=== PATIENT | female | born 1955 | race Caucasian/White ===

== ENCOUNTER 2018-02-06 09:33 | Emergency (ER) | payer BC ==
[2018-02-06 09:48] VITALS: TEMP 98.6
[2018-02-06] MEDS ORDERED: SODIUM CHLORIDE 0.9% 1,000 ML IV STA (10:17)
[2018-02-06] MEDS ORDERED: ONDANSETRON 4 MG/2 ML VIAL IVP STA (10:17)
--- NOTE | 2018-02-06 10:20 | ED ---
General Adult HPI - General Chief complaint: Abdominal Pain Stated complaint: abd pain Source: patient, RN notes reviewed, old records reviewed Mode of arrival: ambulatory Limitations: no limitations - History of Present Illness Initial comments: 62-year-old female patient with past medical history including irritable bowel syndrome chronic abdominal pain and past surgical history including hysterectomy , cholecystectomy presents to ED with approximately 2 days of right upper quadrant pain, shortness of breath. Pt additionally complains of some suprapubic pain that waxes and wanes. Patient describes the pain as a squeezing sensation in her right upper quadrant. Patient states that she also feels that she has a pressure in her epigastric region, making it difficult to take a deep breath. Patient denies any pleuritic chest pain, chest pain. Patient reports that she has had nausea without emesis. Patient denies any fevers or chills at home. Patient has not taken anything for this problem. Patient has not been previously evaluated for this problem. Patient denies any other symptoms. Systemic: Pt denies fatigue, myalgia, fever/chills, rash. Pt denies weakness, night sweats, weight loss. Neuro: Pt denies headache, visual disturbances, syncope or pre-syncope. HEENT: Pt denies ocular discharge or irritation, otalgia, rhinorrhea, pharyngitis or notable lymphadenopathy. Cardiopulmonary: Pt denies chest pain, heart palpitations, dyspnea on exertion. Abdominal/GI: Pt denies v/d. : Pt denies dysuria, burning w/ urination, frequency/urgency. Denies new onset urinary or bowel incontinence. MSK: Pt denies myalgia, loss of strength or function in extremities. Neuro: Pt denies new onset weakness, paresthesias. - Related Data Home Medications Medication Instructions Recorded Confirmed Estradiol [Vagifem] 10 mcg VG TUFR 02/06/18 02/06/18 Inulin/Chromium Picolinate [Fiber 1 tab PO DAILY 02/06/18 02/06/18 Gummies Chew] L.acidoph,Paracasei, B.lactis 1 cap PO DAILY 02/06/18 02/06/18 [Probiotic] Levothyroxine Sodium [Synthroid] 25 mcg PO SUTUTHSA 02/06/18 02/06/18 Levothyroxine Sodium [Synthroid] 50 mcg PO MOWEFR 02/06/18 02/06/18 Magnesium 200 mg PO DAILY 02/06/18 02/06/18 [place]-3 Fatty Acids/Fish Oil [Fish 1 cap PO DAILY 02/06/18 02/06/18 Oil 1,000 mg Softgel] Polyethylene Glycol 3350 [Miralax] 17 gm PO HS 02/06/18 02/06/18 Previous Rx's Medication Instructions Recorded Ondansetron Odt [Zofran ODT] 4 mg PO Q8HR PRN #20 tab 02/06/18 Pantoprazole Sodium [Protonix] 20 mg PO Q24H #14 tablet. 02/06/18 Allergies Allergy/AdvReac Type Severity Reaction Status Date / Time No Known Allergies Allergy Verified 02/06/18 12:23 Review of Systems ROS Statement: Those systems with pertinent positive or pertinent negative responses have been documented in the HPI. ROS Other: All systems not noted in ROS Statement are negative. Past Medical History Additional Past Medical History / Comment(s): chronic abd pain chronic pelvic pain dysfunction diverticulitis ibs History of Any Multi-Drug Resistant Organisms: None Reported Past Surgical History: Cholecystectomy, Hysterectomy Additional Past Surgical History / Comment(s): l toe joint Past Psychological History: No Psychological Hx Reported Smoking Status: Never smoker Past Alcohol Use History: None Reported Past Drug Use History: None Reported General Exam - General Exam Comments Initial Comments: Constitutional: NAD, AOX3, Pt has pleasant affect. HEENT: NC/AT, trachea midline, neck supple, no lymphadenopathy. Posterior pharynx non erythematous, without exudates. External ears appear normal, without discharge. Mucous membranes moist. Eyes PERRLA, EOM intact. There is no scleral icterus. No pallor noted. Cardiopulmonary: RRR, no murmurs, rubs or gallops, no JVD noted. Lungs CTAB in anterior and posterior meier. No peripheral edema. Abdominal exam: Abdomen soft and non-distended. Abdomen mildly tender to palpation in right upper quadrant. No guarding or rigidity. Perez sign negative. No tenderness at McBurneys point. Bowel sounds active in LLQ. No hepatosplenomegaly. No ecchymosis Neuro: CN II-XII grossly intact. No nuchal rigidity. MSK: No posterior calf tenderness bilaterally, homans sign negative bilaterally. Posterior tibialis and radial pulse +2 bilaterally. Sensation intact in upper and lower extremities. Full active ROM in upper and lower extremities, 5/5 strength. Limitations: no limitations Course Vital Signs 02/06/18 02/06/18 02/06/18 09:45 13:04 15:25 Temperature 98.6 F Pulse Rate 77 74 66 Respiratory 18 18 16 Rate Blood Pressure 119/68 123/70 113/65 O2 Sat by Pulse 99 100 99 Oximetry Medical Decision Making - Medical Decision Making 62-year-old female patient with past medical history including irritable bowel syndrome chronic abdominal pain and past surgical history including hysterectomy , cholecystectomy presents to ED with approximately 2 days of right upper quadrant pain, shortness of breath. Pt additionally complains of some suprapubic pain that waxes and wanes. Patient describes the pain as a squeezing sensation in her right upper quadrant. Patient states that she also feels that she has a pressure in her epigastric region, making it difficult to take a deep breath. Patient denies any pleuritic chest pain, chest pain. Pt VSS, afebrile. Physical exam displayed abnormality 10 to palpation or quadrant. No guarding or rigidity negative Perez sign. No ecchymoses. Cardiopulmonary exam without acute pathology.Laboratory investigations revealed noncompressive CBC, negative d-dimer, mildly increased liver function tests, negative troponin. Amylase lipase within normal limits. Lactic acid within normal limits. UA nonimmpressive. Influenza A and B negative. Imaging modalities Chest x-ray displayed no evidence for acute pulmonary disease. CT abdomen and pelvis displayed mild wall thickening distal stomach which reflect gastritis. EKG not concerning for acute ischemia. Patient diagnosed with gastritis. Patient prescribed Protonix and Zofran. Patient to follow up with PCP tomorrow. Patient to follow-up with [facility] that she follows up with for chronic abdominal pain. Patient to return to ED if new signs or symptoms develop or if condition worsens in any way. Case discussed with Dr. Morgan. - Lab Data Result diagrams: 02/06/18 11:12 02/06/18 11:12 Lab Results 02/06/18 02/06/18 02/06/18 Range/Units 11:12 11:12 11:12 WBC 4.1 (3.8-10.6) k/uL RBC 4.88 (3.80-5.40) m/uL Hgb 14.8 (11.4-16.0) gm/dL Hct 44.9 (34.0-46.0) % MCV 92.1 (80.0-100.0) fL MCH 30.4 (25.0-35.0) pg MCHC 33.0 (31.0-37.0) g/dL RDW 12.3 (11.5-15.5) % Plt Count 294 (150-450) k/uL Neutrophils % 65 % Lymphocytes % 24 % Monocytes % 6 % Eosinophils % 3 % Basophils % 1 % Neutrophils # 2.7 (1.3-7.7) k/uL Lymphocytes # 1.0 (1.0-4.8) k/uL Monocytes # 0.2 (0-1.0) k/uL Eosinophils # 0.1 (0-0.7) k/uL Basophils # 0.0 (0-0.2) k/uL D-Dimer (<0.60) mg/L FEU Sodium 142 (137-145) mmol/L Potassium 4.3 (3.5-5.1) mmol/L Chloride 107 (98-107) mmol/L Carbon Dioxide 28 (22-30) mmol/L Anion Gap 7 mmol/L BUN 9 (7-17) mg/dL Creatinine 0.50 L (0.52-1.04) mg/dL Est GFR (CKD-EPI)AfAm >90 (>60 ml/min/1.73 sqM) Est GFR (CKD-EPI)NonAf >90 (>60 ml/min/1.73 sqM) Glucose 93 (74-99) mg/dL Plasma Lactic Acid Bret (0.7-2.0) mmol/L Calcium 10.0 (8.4-10.2) mg/dL Total Bilirubin 0.6 (0.2-1.3) mg/dL AST 75 H (14-36) U/L ALT 113 H (9-52) U/L Alkaline Phosphatase 74 (38-126) U/L Troponin I <0.012 (0.000-0.034) ng/mL Total Protein 6.9 (6.3-8.2) g/dL Albumin 4.0 (3.5-5.0) g/dL Amylase 64 (30-110) U/L Lipase 110 (23-300) U/L Urine Color Urine Appearance (Clear) Urine pH (5.0-8.0) Ur Specific [place] (1.001-1.035) Urine Protein (Negative) Urine Glucose (UA) (Negative) Urine Ketones (Negative) Urine Blood (Negative) Urine Nitrite (Negative) Urine Bilirubin (Negative) Urine Urobilinogen (<2.0) mg/dL Ur Leukocyte Esterase (Negative) Influenza Type A RNA (Not Detectd) Influenza Type B (PCR) (Not Detectd) 02/06/18 02/06/18 02/06/18 Range/Units 11:12 11:12 12:30 WBC (3.8-10.6) k/uL RBC (3.80-5.40) m/uL Hgb (11.4-16.0) gm/dL Hct (34.0-46.0) % MCV (80.0-100.0) fL MCH (25.0-35.0) pg MCHC (31.0-37.0) g/dL RDW (11.5-15.5) % Plt Count (150-450) k/uL Neutrophils % % Lymphocytes % % Monocytes % % Eosinophils % % Basophils % % Neutrophils # (1.3-7.7) k/uL Lymphocytes # (1.0-4.8) k/uL Monocytes # (0-1.0) k/uL Eosinophils # (0-0.7) k/uL Basophils # (0-0.2) k/uL D-Dimer 0.32 (<0.60) mg/L FEU Sodium (137-145) mmol/L Potassium (3.5-5.1) mmol/L Chloride (98-107) mmol/L Carbon Dioxide (22-30) mmol/L Anion Gap mmol/L BUN (7-17) mg/dL Creatinine (0.52-1.04) mg/dL Est GFR (CKD-EPI)AfAm (>60 ml/min/1.73 sqM) Est GFR (CKD-EPI)NonAf (>60 ml/min/1.73 sqM) Glucose (74-99) mg/dL Plasma Lactic Acid Bret 1.3 (0.7-2.0) mmol/L Calcium (8.4-10.2) mg/dL Total Bilirubin (0.2-1.3) mg/dL AST (14-36) U/L ALT (9-52) U/L Alkaline Phosphatase (38-126) U/L Troponin I (0.000-0.034) ng/mL Total Protein (6.3-8.2) g/dL Albumin (3.5-5.0) g/dL Amylase (30-110) U/L Lipase (23-300) U/L Urine Color Urine Appearance (Clear) Urine pH (5.0-8.0) Ur Specific [place] (1.001-1.035) Urine Protein (Negative) Urine Glucose (UA) (Negative) Urine Ketones (Negative) Urine Blood (Negative) Urine Nitrite (Negative) Urine Bilirubin (Negative) Urine Urobilinogen (<2.0) mg/dL Ur Leukocyte Esterase (Negative) Influenza Type A RNA Not Detected (Not Detectd) Influenza Type B (PCR) Not Detected (Not Detectd) 02/06/18 Range/Units 12:31 WBC (3.8-10.6) k/uL RBC (3.80-5.40) m/uL Hgb (11.4-16.0) gm/dL Hct (34.0-46.0) % MCV (80.0-100.0) fL MCH (25.0-35.0) pg MCHC (31.0-37.0) g/dL RDW (11.5-15.5) % Plt Count (150-450) k/uL Neutrophils % % Lymphocytes % % Monocytes % % Eosinophils % % Basophils % % Neutrophils # (1.3-7.7) k/uL Lymphocytes # (1.0-4.8) k/uL Monocytes # (0-1.0) k/uL Eosinophils # (0-0.7) k/uL Basophils # (0-0.2) k/uL D-Dimer (<0.60) mg/L FEU Sodium (137-145) mmol/L Potassium (3.5-5.1) mmol/L Chloride (98-107) mmol/L Carbon Dioxide (22-30) mmol/L Anion Gap mmol/L BUN (7-17) mg/dL Creatinine (0.52-1.04) mg/dL Est GFR (CKD-EPI)AfAm (>60 ml/min/1.73 sqM) Est GFR (CKD-EPI)NonAf (>60 ml/min/1.73 sqM) Glucose (74-99) mg/dL Plasma Lactic Acid Bret (0.7-2.0) mmol/L Calcium (8.4-10.2) mg/dL Total Bilirubin (0.2-1.3) mg/dL AST (14-36) U/L ALT (9-52) U/L Alkaline Phosphatase (38-126) U/L Troponin I (0.000-0.034) ng/mL Total Protein (6.3-8.2) g/dL Albumin (3.5-5.0) g/dL Amylase (30-110) U/L Lipase (23-300) U/L Urine Color Light Yellow Urine Appearance Clear (Clear) Urine pH 7.5 (5.0-8.0) Ur Specific [place] 1.045 H (1.001-1.035) Urine Protein Negative (Negative) Urine Glucose (UA) Negative (Negative) Urine Ketones 1+ H (Negative) Urine Blood Negative (Negative) Urine Nitrite Negative (Negative) Urine Bilirubin Negative (Negative) Urine Urobilinogen <2.0 (<2.0) mg/dL Ur Leukocyte Esterase Negative (Negative) Influenza Type A RNA (Not Detectd) Influenza Type B (PCR) (Not Detectd) - EKG Data -: EKG Interpreted by Me (and dr morgan) EKG Comments: Ventricular rate 67, VT interval 162, QRS 82, QT/QTc 426 S4 50. Normal sinus rhythm. No concern for acute ischemia. Disposition Clinical Impression: Gastritis Disposition: HOME SELF-CARE Condition: Good Instructions: Gastritis (ED) Additional Instructions: Pt to adhere to previously described tx plan. Pt to f/u with PCP in 1-2 days. Pt to return to ED if s/sx worsen in anyway. Prescriptions: Ondansetron Odt [Zofran ODT] 4 mg PO Q8HR PRN #20 tab PRN Reason: Nausea Pantoprazole Sodium [Protonix] 20 mg PO Q24H #14 tablet.dr Is patient prescribed a controlled substance at d/c from ED?: No Referrals: Scott Nelson DO [Primary Care Provider] - 1-2 days Time of Disposition: 14:18
[2018-02-06 11:36] LABS: Basophils % (A) 1 %; Eosinophils # (A) 0.1 k/uL (0-0.7); Eosinophils % (A) 3 %; HCT 44.9 % (34.0-46.0); HGB 14.8 gm/dL (11.4-16.0); Lymphocytes % (A) 24 %; MCH 30.4 pg (25.0-35.0); MCV 92.1 fL (80.0-100.0); Mean Platelet Volume 6.6; Monocytes # (A) 0.2 k/uL (0-1.0); Monocytes % (A) 6 %; Neutrophils # (A) 2.7 k/uL (1.3-7.7); Neutrophils % (A) 65 %; Platelet Count 294 k/uL (150-450); RBC 4.88 m/uL (3.80-5.40); RDW 12.3 % (11.5-15.5); WBC 4.1 k/uL (3.8-10.6)
[2018-02-06 11:47] LABS: ALT 113 U/L (9-52); AST 75 U/L (14-36); Alkaline Phosphatase 74 U/L (38-126); Amylase 64 U/L (30-110); Anion Gap 7 mmol/L; Blood Urea Nitrogen 9 mg/dL (7-17); Carbon Dioxide 28 mmol/L (22-30); Chloride 107 mmol/L (98-107); Glucose 93 mg/dL (74-99); Lipase 110 U/L (23-300); Potassium 4.3 mmol/L (3.5-5.1); Sodium 142 mmol/L (137-145); Total Bilirubin 0.6 mg/dL (0.2-1.3); Total Protein 6.9 g/dL (6.3-8.2)
--- NOTE | 2018-02-06 12:04 | XR ---
EXAMINATION TYPE: XR chest 2V DATE OF EXAM: 02/06/2018 COMPARISON: NONE HISTORY: Shortness of breath TECHNIQUE: Frontal and lateral views of the chest are obtained. FINDINGS: Scattered senescent parenchymal changes noted. Hyperinflation compatible with COPD. No evidence for infiltrate. No evidence for atelectasis. Heart size is stable. Mediastinal structures are stable and grossly unremarkable. No evidence for hilar prominence. Degenerative changes dorsal spine. IMPRESSION: 1. No evidence for acute pulmonary disease.
--- NOTE | 2018-02-06 12:37 | CT ---
EXAMINATION TYPE: CT abdomen pelvis w con DATE OF EXAM: 02/06/2018 COMPARISON: 11/27/2011 HISTORY: RUQ pain, nausea, constipation. CT DLP: 437.1 mGycm CONTRAST: CT scan of the abdomen and pelvis is performed without Oral Contrast and with IV Contrast, patient in jected with 100 mL of Isovue 300. FINDINGS: LUNG BASES-: No visible nodule. No infiltrate. LIVER/GB: Cholecystectomy clips are in place. No space occupying hepatic lesion. Biliary tree is o f normal caliber. PANCREAS: No inflammation. No distinct mass. SPLEEN: No splenic enlargement. No lesion seen. ADRENALS: No nodule. No thickening. KIDNEYS/BLADDER: No hydronephrosis. No nephrolithiasis. No distinct renal mass. Urinary bladder g rossly unremarkable. BOWEL: Normal appendix. Normal bowel caliber. There is mild wall thickening distal stomach which may reflect gastritis. Correlate clinically. No free air or abscess seen. GENITAL ORGANS: No gross abnormality. LYMPH NODES: No greater than 1cm abdominal or pelvic lymph nodes are appreciated. AORTA: No significant abnormality. OSSEOUS STRUCTURES: No significant abnormality is seen. OTHER: No significant additional abnormality is seen. IMPRESSION: 1. There is mild wall thickening distal stomach which may reflect gastritis. Correlate clinically.
[2018-02-06 12:54] LABS: Appearance,Urine Clear (Clear); Bilirubin,Urine Negative (Negative); Blood,Urine Negative (Negative); Color,Urine Light Yellow; Glucose,Urine (UA) Negative (Negative); Ketones,Urine 1+ (Negative); Leukocyte Esterase,Urine Negative (Negative); Nitrite,Urine Negative (Negative); PH, Urine 7.5 (5.0-8.0); Protein,Urine Negative (Negative); Specific Gravity,Urine 1.045 (1.001-1.035); Urobilinogen,Urine <2.0 mg/dL (<2.0)
[2018-02-06 15:27] VITALS: BP 113/65; PULSE 66; RESP 16
== END 2018-02-06 15:25 | disposition home or self-care (01) ==
LOC: EC 09:33
DX: K29.70 Gastritis, unspecified, without bleeding (principal); R79.89 Other specified abnormal findings of blood chemistry; R06.02 Shortness of breath; K58.9 Irritable bowel syndrome, unspecified; Z87.19 Personal history of other diseases of the digestive system; Z90.49 Acquired absence of other specified parts of digestive tract; Z90.710 Acquired absence of both cervix and uterus; Z79.890 Hormone replacement therapy; Z79.4 Long term (current) use of insulin; Z79.899 Other long term (current) drug therapy
CPT/HCPCS: 36415; 93005; 85379; 80053; 82150; 83605; 83690; 84484; 85025; 81003; 87502; 71046; 74177; 99285; 96374; 96361 ×3; J2405; Q9967

== ENCOUNTER → 2018-03-30 | Outpatient (CLI) | payer BC ==
[2018-03-30 11:26] VITALS: BP 136/60; PULSE 62; RESP 18; TEMP 97; BMI 19.5
--- NOTE | 2018-03-30 12:00 | P.GSHP ---
History of Present Illness H&P Date: 03/30/18 Chief Complaint: abnormal radiographs Tasha is a 62-year-old white female who underwent a bilateral mammogram on . Following the bilateral mammogram she was recommended to undergo a bilateral breast ultrasound. The bilateral breast ultrasound was felt to be most likely benign but a repeat bilateral ultrasound in 6 months was recommended. Hypoechoic lesion without acoustic enhancement and well-defined borders within the left breast was noted was felt that this might represent a fibroadenoma due to stability as compared to prior mammograms. As precautionary measure follow-up study of both breast by ultrasound in 6 months was recommended. No demonstrated mass or unusual fluid collection was noted in the right breast. The patient herself has not noted any masses or nodules in the breast. She has had no nipple discharge or skin changes in the breast. She has no history of any infection or trauma to the breast. The patient drinks one cup of coffee per day, she does not smoke, she is not exposed to secondhand smoke. She does not drink soda or caffeinated tea. She eats minimal chocolate. She does use Vagifem she has been using this for several years. Family History: father: Metastatic melanoma Sister: Breast cancer at 35, not tested for cancer gene, she started with a lumpectomy and radiation therapy, however 5 years later she had a mastectomy, she is alive without evidence of disease at this time, she is 56 paternal grandmother: Esophageal cancer mother: cervical pre-cancer Hormonal History: menarche: 15 : 3, 3 live births, at first child 23, breast fed: no menopause: hysterctomy at 34, not for cancer BCP: none hormones: vagifem two times/week (estridiol) past surgical history: 1. Hysterectomy 2. Right breast biopsy 2 3. Cholecystectomy 4. Enterocele repair Past Medical History: 1. Chronic abdominal pain 2. Pelvic floor dysfunction treated with physical therapy through [facility] [place] Social History: smoke: none alcohol: none drugs: none - Constitutional Constitutional: Reports sweats - EENT Eyes: denies blurred vision, denies pain Ears: deny: decreased hearing, tinnitus Ears, nose, mouth and throat: Denies headache, Denies sore throat - Breasts Breasts: bilateral: as per HPI - Cardiovascular Cardiovascular: Denies chest pain, Denies shortness of breath - Respiratory Respiratory: Denies cough, Denies 7 - Gastrointestinal Comment: lower abdominal pain Gastrointestinal: Reports constipation, Denies abdominal pain, Denies diarrhea, Denies nausea, Denies vomiting - Genitourinary (Female) Comment: pelvic floor disfunction - Menstruation Menstruation: Reports postmenopausal - Musculoskeletal Musculoskeletal: Denies myalgias - Integumentary Integumentary: Denies pruritus, Denies rash - Neurological Neurological: Denies numbness, Denies weakness - Psychiatric Comment: her son in December Psychiatric: Reports anxiety, Reports depression - Endocrine Endocrine: Denies fatigue, Denies weight change - Hematologic/Lymphatic Comment: none - Allergic/Immunologic Comment: none Past Medical History Additional Past Medical History / Comment(s): chronic abd pain chronic pelvic pain dysfunction diverticulitis ibs History of Any Multi-Drug Resistant Organisms: None Reported Past Surgical History: Breast Surgery, Cholecystectomy, Hysterectomy Additional Past Surgical History / Comment(s): LT toe joint; RT BREAST BX Past Psychological History: No Psychological Hx Reported Smoking Status: Never smoker Past Alcohol Use History: None Reported Past Drug Use History: None Reported - Past Family History Father Family Medical History: Diabetes Mellitus, Skin Disorder Mother Family Medical History: Hyperlipidemia, Hypertension Sister(s) Family Medical History: Cancer Additional Family Medical History / Comment(s): BREAST CANCER Medications and Allergies Home Medications Medication Instructions Recorded Confirmed Type Estradiol [Vagifem] 10 mcg VG TUFR 02/06/18 03/30/18 History Inulin/Chromium Picolinate [Fiber 1 tab PO QAM 02/06/18 03/30/18 History Gummies Chew] L.acidoph,Paracasei, B.lactis 1 cap PO QAM 02/06/18 03/30/18 History [Probiotic] Levothyroxine Sodium [Synthroid] 25 mcg PO SUTUTHSA 02/06/18 03/30/18 History Levothyroxine Sodium [Synthroid] 50 mcg PO MOWEFR 02/06/18 03/30/18 History Magnesium 200 mg PO HS 02/06/18 03/30/18 History [place]-3 Fatty Acids/Fish Oil [Fish 1 cap PO QAM 02/06/18 03/30/18 History Oil 1,000 mg Softgel] Polyethylene Glycol 3350 [Miralax] 17 gm PO HS 01/01/19 02/22/19 History Pantoprazole Sodium [Protonix] 30 mg PO QAM 03/30/18 03/30/18 History Allergies Allergy/AdvReac Type Severity Reaction Status Date / Time No Known Allergies Allergy Verified 03/30/18 11:17 Surgical - Exam Vital Signs Temp Pulse Resp BP Pulse Ox 97.0 F L 62 18 136/60 100 03/30/18 11:20 03/30/18 11:20 03/30/18 11:20 03/30/18 11:20 03/30/18 11:20 BMI 19.6 - General well developed, well nourished, no distress - Eyes normal ocular movement - ENT no hearing loss, no congestion - Neck no masses, trachea midline - Respiratory normal respiratory effort, clear to auscultation - Cardiovascular Rhythm: regular Heart Sounds: normal: S1, S2 - Abdomen Abdomen: soft - Integumentary normal turgor - Neurologic no disoriented, no combative - Musculoskeletal normal gait, normal posture - Psychiatric oriented to time, oriented to person, oriented to place, speech is normal, memory intact Breast examination: Right breast: Multi-positional exam no dominant masses or nodules of concern, fibrocystic changes Right axilla: No adenopathy of concern Left breast: Multi-positional exam no dominant masses or nodules of concern, fibrocystic changes Left axilla: No adenopathy of concern Results Patient's mammogram and ultrasound reports reviewed Cadence evaluation reveals five-year risk for 4.1%, lifetime risk 19.6% to develop breast cancer Assessment and Plan Assessment: Impression: 1. Fibrocystic breast changes 2. Radiographic abnormalities of the breast 3. Family history breast cancer 4. Increased risk based on Cadence test model for breast cancer 5. Pelvic floor dysfunction Plan: 1. Repeat bilateral breast ultrasound in 6 months 2. Follow-up in 6 months after ultrasound repeated 3. We have discussed possibility of genetic testing for chemoprevention secondary to the galeal test model results and at this time the patient has chosen not to pursue that Cc: Dr. Montano, Dr. Schmitt
== END | disposition home or self-care (01) ==
LOC: WWCWWP 10:45
PROVIDERS: ATTEND Surgery
DX: Z53.9 Procedure and treatment not carried out, unspecified reason (principal)

== ENCOUNTER → 2018-10-09 | Outpatient (CLI) | payer BC ==
--- NOTE | 2018-10-09 11:11 | USB ---
Reason for exam: clinical finding. History: Patient is postmenopausal. Family history of premenopausal breast cancer in sister at age 35 and breast cancer in maternal cousin at age 30. 2 benign excisional biopsies of the right breast, 1989. Took hormonal contraceptives for 5 years beginning at age 22. Physical Findings: Nurse did not find any significant physical abnormalities on exam. US Breast BILAT Left complete breast ultrasound includes all four quadrants, the retroareolar region and axilla. Finding demonstrates a 0.8 x 0.8 x 0.5cm oval, cystic, complex lesion at 9 o'clock posterior to nipple, prior measured 0.7 x 0.6 x 0.4cm, this is stable mammographically back to 2013. Right complete breast ultrasound includes all four quadrants, the retroareolar region and axilla. Finding demonstrates no cystic or solid lesion seen. These results were verbally communicated with the patient and result sheet given to the patient on 10/09/18. ASSESSMENT: Benign, BI-RAD 2 RECOMMENDATION: Routine screening mammogram of both breasts in 4 months. Back on schedule for February 2019.
== END | disposition home or self-care (01) ==
LOC: RADUSWWP 09:44
PROVIDERS: ATTEND Surgery
DX: R92.8 Other abnormal and inconclusive findings on diagnostic imaging of breast (principal)

== ENCOUNTER → 2018-10-12 | Outpatient (CLI) | payer BC ==
[2018-10-12 13:09] VITALS: BP 127/81; PULSE 58; RESP 18; TEMP 98; BMI 19.9
--- NOTE | 2018-10-12 13:17 | P.PN ---
Subjective Progress Note Date: 10/12/18 tanya is a 62-year-old white female who underwent a bilateral mammogram on . Following the bilateral mammogram she was recommended to undergo a bilateral breast ultrasound. The bilateral breast ultrasound was felt to be most likely benign but a repeat bilateral ultrasound in 6 months was recommen ded. Hypoechoic lesion without acoustic enhancement and well-defined borders within the left breast was noted was felt that this might represent a fibroadenoma due to stability as compared to prior mammograms. As precautionary measure follow-up study of both breast by ultrasound in 6 months was recommended. No demonstrated mass or unusual fluid collection was noted in the right breast. Almita underwent a bilateral repeat breast ultrasound on 9318 this was felt to be benign BIRADS 2. The patient was started have a 0.8 there is a cystic complex lesion at 9:00 posterior to the nipple prior measurement was 0.7 x 0.6 cm. This was felt to be stable mammographically back to 2013. The patient herself has not noted any masses or nodules in the breast. She has had no nipple discharge or skin changes in the breast. She has no history of any infection or trauma to the breast. The patient drinks one cup of coffee per day, she does not smoke, she is not exposed to secondhand smoke. She does not drink soda or caffeinated tea. She eats minimal chocolate. She does use Vagifem she has been using this for several years. Cadence risk evaluation reveals five-year risk of 4.1% Lifetime risk 19.6% We have discussed using an antiestrogen agent and the patient is not interested at this time. She does want to have close surveillance and monitoring secondary to her family history. Family History: father: Metastatic melanoma Sister: Breast cancer at 35, not tested for cancer gene, she started with a lumpectomy and radiation therapy, however 5 years later she had a mastectomy, she is alive without evidence of disease at this time, she is 56 birthday in April paternal grandmother: Esophageal cancer mother: cervical pre-cancer Hormonal History: menarche: 15 : 3, 3 live births, at first child 23, breast fed: no menopause: hysterctomy at 34, not for cancer BCP: none hormones: vagifem two times/week (estridiol), 6 years past surgical history: 1. Hysterectomy 2. Right breast biopsy 2 3. Cholecystectomy 4. Enterocele repair Past Medical History: 1. Chronic abdominal pain 2. Pelvic floor dysfunction treated with physical therapy through [facility] [place] Social History: smoke: none alcohol: none drugs: none - Constitutional Constitutional: Reports sweats - EENT Eyes: denies blurred vision, denies pain Ears: deny: decreased hearing, tinnitus Ears, nose, mouth and throat: Denies headache, Denies sore throat - Breasts Breasts: bilateral: as per HPI - Cardiovascular Cardiovascular: Denies chest pain, Denies shortness of breath - Respiratory Respiratory: Denies cough, Denies 7 - Gastrointestinal Comment: lower abdominal pain Gastrointestinal: Reports constipation, Denies abdominal pain, Denies diarrhea, Denies nausea, Denies vomiting - Genitourinary (Female) Comment: pelvic floor disfunction - Menstruation Menstruation: Reports postmenopausal - Musculoskeletal Musculoskeletal: Denies myalgias - Integumentary Integumentary: Denies pruritus, Denies rash - Neurological Neurological: Denies numbness, Denies weakness - Psychiatric Comment: her son in December Psychiatric: Reports anxiety, Reports depression - Endocrine Endocrine: Denies fatigue, Denies weight change - Hematologic/Lymphatic Comment: none - Allergic/Immunologic Comment: none Past Medical History Additional Past Medical History / Comment(s): chronic abd pain chronic pelvic pain dysfunction diverticulitis ibs History of Any Multi-Drug Resistant Organisms: None Reported Past Surgical History: Breast Surgery, Cholecystectomy, Hysterectomy Additional Past Surgical History / Comment(s): LT toe joint; RT BREAST BX Past Psychological History: No Psychological Hx Reported Smoking Status: Never smoker Past Alcohol Use History: None Reported Past Drug Use History: None Reported Objective - Exam BMI 19.1 - Constitutional General appearance: Present: average body habitus - EENT Eyes: Present: EOMI ENT: Present: hearing grossly normal - Neck Neck: Present: normal ROM - Respiratory Respiratory: bilateral: CTA - Cardiovascular Rhythm: regular Heart sounds: normal: S1, S2 - Gastrointestinal General gastrointestinal: Present: soft - Integumentary Integumentary: Present: normal turgor - Musculoskeletal Musculoskeletal: Present: gait normal - Psychiatric Psychiatric: Present: A&O x's 3, appropriate affect, intact judgment & insight - Additional findings Additional findings: Breast exam: Right breast: Multi-positional exam fibrocystic changes no dominant masses or nodules of concern Right axilla: No adenopathy of concern Left breast: Multi-positional exam no dominant masses or nodules of concern Left axilla: No adenopathy of concern Assessment and Plan Assessment: Impression: 1. Fibrocystic breast changes 2. Radiographic abnormality left breast 3. Family history of breast cancer 4. Increased risk based on Cadence model test for breast cancer 5. Pelvic floor dysfunction Plan: 1. Bilateral mammogram in 4 months with a physician exam at that time 2. Patient to call immediately if she notes anything of concern 3. Medical management of medical conditions CC:Dr. Montano, Dr. Schmitt
== END | disposition home or self-care (01) ==
LOC: WWCWWP 12:38
PROVIDERS: ATTEND Surgery
DX: Z53.9 Procedure and treatment not carried out, unspecified reason (principal)

== ENCOUNTER → 2019-02-11 | Outpatient (CLI) | payer BC ==
--- NOTE | 2019-02-12 09:25 | MM ---
Reason for exam: screening (asymptomatic). Last mammogram was performed 4 years ago. History: Patient is postmenopausal. Family history of premenopausal breast cancer in sister at age 35 and breast cancer in maternal cousin at age 30. 2 benign excisional biopsies of the right breast, 1989. Took hormonal contraceptives for 5 years beginning at age 22. Took estrogen for 5 years. Took progesterone for 5 years. Physical Findings: A clinical breast exam by your physician is recommended on an annual basis and results should be correlated with mammographic findings. MG Screening Mammo w CAD Bilateral CC, MLO, and XCCL view(s) were taken. Prior study comparison: February 04, 2015, bilateral MG screening mammo w CAD. January 21, 2014, bilateral MG screening mammo w CAD. The breast tissue is heterogeneously dense. This may lower the sensitivity of mammography. There is a stable left lower inner quadrant mass back to 2014. No suspicious abnormality. No significant changes when compared with prior studies. ASSESSMENT: Benign, BI-RAD 2 RECOMMENDATION: Routine screening mammogram of both breasts in 1 year.
== END | disposition home or self-care (01) ==
LOC: RADMAMWWP 09:51
PROVIDERS: ATTEND Surgery
DX: Z12.31 Encounter for screening mammogram for malignant neoplasm of breast (principal)
CPT/HCPCS: 77067

== ENCOUNTER → 2019-02-15 | Outpatient (CLI) | payer BC ==
[2019-02-15 12:53] VITALS: BP 130/86; PULSE 80; RESP 16; TEMP 97.6
--- NOTE | 2019-02-15 13:13 | P.PN ---
Subjective Progress Note Date: 02/15/19 Principal diagnosis: fibrocystic breast changes The patient has been being followed for radiographic abnormality noted to in February 2018. Her most recent mammogram now is February 11, 2019. This was benign BIRADS 2. The patient at this time does not feel any lumps masses or n odules for which she is concerned in her breasts. She has no complaints of any breast pain. No nipple discharge or skin changes. She has increased her caffeine intake to approximately 2 cups per day. She does not smoke and is not exposed to secondhand smoke. She eats chocolate occasionally. She uses Vagifem. She has been using it for approximately 5 years. Family History: father: Metastatic melanoma Sister: Breast cancer at 35, not tested for cancer gene, she started with a lumpectomy and radiation therapy, however 5 years later she had a mastectomy, she is alive without evidence of disease at this time, she is 56 birthday in April paternal grandmother: Esophageal cancer mother: cervical pre-cancer Hormonal History: menarche: 15 : 3, 3 live births, at first child 23, breast fed: no menopause: hysterctomy at 34, not for cancer BCP: none hormones: vagifem two times/week (estridiol), 6 years past surgical history: 1. Hysterectomy 2. Right breast biopsy 2 3. Cholecystectomy 4. Enterocele repair Past Medical History: 1. Chronic abdominal pain 2. Pelvic floor dysfunction treated with physical therapy through [facility] [place] Social History: smoke: none alcohol: none drugs: none - Constitutional Constitutional: Reports sweats - EENT Eyes: denies blurred vision, denies pain Ears: deny: decreased hearing, tinnitus Ears, nose, mouth and throat: Denies headache, Denies sore throat - Breasts Breasts: bilateral: as per HPI - Cardiovascular Cardiovascular: Denies chest pain, Denies shortness of breath - Respiratory Respiratory: Denies cough, - Gastrointestinal Comment: lower abdominal pain Gastrointestinal: Reports constipation, Denies abdominal pain, Denies diarrhea, Denies nausea, Denies vomiting - Genitourinary (Female) Comment: pelvic floor disfunction - Menstruation Menstruation: Reports postmenopausal - Musculoskeletal Musculoskeletal: Denies myalgias - Integumentary Integumentary: Denies pruritus, Denies rash - Neurological Neurological: Denies numbness, Denies weakness - Psychiatric Comment: her son in December Psychiatric: Reports anxiety, Reports depression - Endocrine Endocrine: Denies fatigue, Denies weight change - Hematologic/Lymphatic Comment: none - Allergic/Immunologic Comment: none Past Medical History Additional Past Medical History / Comment(s): chronic abd pain chronic pelvic pain dysfunction diverticulitis ibs History of Any Multi-Drug Resistant Organisms: None Reported Past Surgical History: Breast Surgery, Cholecystectomy, Hysterectomy Additional Past Surgical History / Comment(s): LT toe joint; RT BREAST BX Past Psychological History: No Psychological Hx Reported Smoking Status: Never smoker Past Alcohol Use History: None Reported Past Drug Use History: None Reported Objective - Vital Signs Vital signs: Vital Signs Temp 97.6 F 02/15/19 12:47 Pulse 80 02/15/19 12:47 Resp 16 02/15/19 12:47 BP 130/86 02/15/19 12:47 Pulse Ox 99 02/15/19 12:47 Intake & Output 02/14/19 02/15/19 02/15/19 18:59 06:59 18:59 Weight 48.988 kg - Exam BMI 19.1 - Constitutional General appearance: Present: average body habitus - EENT Eyes: Present: EOMI ENT: Present: hearing grossly normal - Neck Details: no adenopathy Neck: Present: normal ROM - Respiratory Respiratory: bilateral: CTA - Cardiovascular Rhythm: regular Heart sounds: normal: S1, S2 - Gastrointestinal General gastrointestinal: Present: normal bowel sounds, soft - Integumentary Integumentary: Present: normal turgor - Musculoskeletal Musculoskeletal: Present: gait normal - Psychiatric Psychiatric: Present: A&O x's 3, appropriate affect, intact judgment & insight - Additional findings Additional findings: breast exam: bra 34C inspection: no skin lesions of concern, nipple not inverted right breast: Slightly larger than left breast, fibrocystic changes, no dominant masses or nodules of concern on multiple positional exam Right axilla: No adenopathy of concern Left breast: Multi-positional exam fibrocystic changes no dominant masses or nodules of concern Left axilla: No adenopathy of concern Assessment and Plan Assessment: Impression: 1. Fibrocystic breast changes 2. Family history of breast cancer 3. Bilateral mammogram BIRADS 2 4. Nothing which would warrant interventional biopsy at this time Plan: 1. We have again discussed the caffeine may increase fibrocystic breast changes patient is aware that this time is going to just follow closely 2. Repeat bilateral mammogram in 1 year with physician exam at that time 3. We have discussed genetic testing for patient's sister who developed breast cancer at 35 port she has opted not to do this Cc: Dr.Mark Nelson Encounter 15 minutes > 50% of time in planning and counselling Time with Patient: Less than 30
== END | disposition home or self-care (01) ==
LOC: WWCWWP 12:43
PROVIDERS: ATTEND Surgery
DX: Z53.9 Procedure and treatment not carried out, unspecified reason (principal)

== ENCOUNTER → 2020-03-11 | Outpatient (CLI) | payer BC ==
--- NOTE | 2020-03-13 14:27 | MM ---
Reason for exam: screening (asymptomatic). Last mammogram was performed 1 year and 1 month ago. History: Patient is postmenopausal. Family history of premenopausal breast cancer in sister at age 35 and breast cancer in maternal cousin at age 30. 2 benign excisional biopsies of the right breast, 1989. Took hormonal contraceptives for 5 years beginning at age 22. Took estrogen for 5 years. Took progesterone for 5 years. Physical Findings: A clinical breast exam by your physician is recommended on an annual basis and results should be correlated with mammographic findings. MG Screening Mammo w CAD Bilateral CC and MLO view(s) were taken. Prior study comparison: February 11, 2019, bilateral MG screening mammo w CAD. February 04, 2015, bilateral MG screening mammo w CAD. The breast tissue is heterogeneously dense. This may lower the sensitivity of mammography. Finding: There are typically benign round, regional calcifications in the upper outer quadrant. Asymmetric breast tissue left anterior breast, stable. There is no discrete abnormality. ASSESSMENT: Benign, BI-RAD 2 RECOMMENDATION: Routine screening mammogram of both breasts in 1 year.
== END | disposition home or self-care (01) ==
LOC: RADMAMWWP 08:16
PROVIDERS: ATTEND Surgery
DX: Z12.31 Encounter for screening mammogram for malignant neoplasm of breast (principal)
CPT/HCPCS: 77067

== ENCOUNTER → 2020-03-13 | Outpatient (CLI) | payer BC ==
[2020-03-13 14:52] VITALS: BP 115/73; PULSE 68; RESP 18; TEMP 97.8
--- NOTE | 2020-03-13 15:06 | P.PN ---
Subjective Progress Note Date: 03/13/20 Principal diagnosis: fibrocystic breast The patient is a 64 year old white female and has been being followed for radiographic abnormality noted to in February 2018. Her most recent mammogram now 03-11-20.. This was benign BIRADS 2. The patient at this time does not feel any lumps masses or nodules for which she is concerned in her breasts. She has no complaints of any breast pain. No nipple discharge or skin changes. caffiene: One cup per day She does not smoke and is not exposed to secondhand smoke. She eats chocolate occasionally. She uses Vagifem. She has been using it for approximately 6 years. Family History: father: Metastatic melanoma Sister: Breast cancer at 35, not tested for cancer gene, she started with a lumpectomy and radiation therapy, however 5 years later she had a mastectomy, she is alive without evidence of disease at this time, she is 58 birthday in April paternal grandmother: Esophageal cancer mother: cervical pre-cancer Hormonal History: menarche: 15 : 3, 3 live births, at first child 23, breast fed: no menopause: hysterctomy at 34, not for cancer BCP: none hormones: vagifem two times/week (estridiol), 6 years past surgical history: 1. Hysterectomy 2. Right breast biopsy 2 3. Cholecystectomy 4. Enterocele repair Past Medical History: 1. Chronic abdominal pain 2. Pelvic floor dysfunction treated with physical therapy through [facility] [place] 3. flare ups of diverticular disease Social History: smoke: none alcohol: none drugs: none - Constitutional Constitutional: Reports sweats - EENT Eyes: denies blurred vision, denies pain Ears: deny: decreased hearing, tinnitus Ears, nose, mouth and throat: Denies headache, Denies sore throat - Breasts Breasts: bilateral: as per HPI - Cardiovascular Cardiovascular: Denies chest pain, Denies shortness of breath - Respiratory Respiratory: Denies cough, - Gastrointestinal Comment: lower abdominal pain Gastrointestinal: Reports constipation, Denies abdominal pain, Denies diarrhea, Denies nausea, Denies vomiting - Genitourinary (Female) Comment: pelvic floor disfunction - Menstruation Menstruation: Reports postmenopausal - Musculoskeletal Musculoskeletal: Denies myalgias - Integumentary Integumentary: Denies pruritus, Denies rash - Neurological Neurological: Denies numbness, Denies weakness - Psychiatric Comment: her son in December 2018 Psychiatric: Reports anxiety, Reports depression - Endocrine Endocrine: Denies fatigue, Denies weight change - Hematologic/Lymphatic Comment: none - Allergic/Immunologic Comment: none Objective - Exam BMI 20.9 - Constitutional General appearance: Present: average body habitus - EENT Eyes: Present: EOMI ENT: Present: hearing grossly normal - Neck Neck: Present: normal ROM - Respiratory Respiratory: bilateral: CTA - Cardiovascular Rhythm: regular Heart sounds: normal: S1, S2 - Gastrointestinal General gastrointestinal: Present: normal bowel sounds, soft - Integumentary Integumentary: Present: normal turgor - Musculoskeletal Musculoskeletal: Present: gait normal - Psychiatric Psychiatric: Present: A&O x's 3, appropriate affect, intact judgment & insight - Additional findings Additional findings: breast exam: BRA: 34C inspection: bilateral grade 2 ptosis palpation: right breast: Positional exam fibrocystic changes, no dominant masses or nodules of concern Right axilla: No adenopathy of concern Left breast: Multiple positional exam fibrocystic changes, no dominant masses or nodules of concern Left axilla: No adenopathy of concern On the right anterior chest wall there is small area of dry/scaling skin patient is watching this area and if it does not heal she will follow up Assessment and Plan Assessment: Impression: 1. Chronic abdominal pain 2. Pelvic floor dysfunction treated with physical therapy through [facility] [place] 3. flare ups of diverticular disease 4. bilateral fibrocystic breast disease Plan: 1. bilateral mammogram in 1 year 2. any changes to call us sooner CC: Dr. Carter encounter 20 minutes time spent in medical record review, physical exam, and counselling.
== END | disposition home or self-care (01) ==
LOC: WWCWWP 14:38
PROVIDERS: ATTEND Surgery
DX: Z53.9 Procedure and treatment not carried out, unspecified reason (principal)

== ENCOUNTER → 2020-10-26 | Outpatient (CLI) | payer BC ==
[2020-10-26 10:25] LABS: HGB 13.9 g/dL (12.0-15.0); MCHC 33.1 g/dL (32.0-37.0); MCV 93.5 fL (80.0-97.0); Mean Platelet Volume 9.5 fL (9.5-12.2); Platelet Count 296 X 10*3/uL (140-440); RBC 4.49 X 10*6/uL (4.10-5.20); RDW 12.3 % (11.5-14.5); WBC 3.37 X 10*3/uL (4.50-10.00)
[2020-10-26 13:12] LABS: African American GFR (CKD) 106.9 (60.0-200.0); Albumin 4.3 g/dL (3.80-4.90); Albumin/Globulin Ratio 2.05 (1.60-3.17); Anion Gap 5.1 mmol/L (4.00-12.00); BUN/Creat Ratio 21.43 Ratio (12.00-20.00); Calcium 9.6 mg/dL (8.7-10.3); Carbon Dioxide 30.9 mmol/L (21.6-31.8); Globulin 2.1 g/dL (1.6-3.3); Non-African American GFR(CKD) 92.2 (60.0-200.0); Potassium 4.5 mmol/L (3.5-5.5); Total Bilirubin 0.5 mg/dL (0.3-1.2); Total Protein 6.4 g/dL (6.2-8.2)
[2020-10-26 13:21] LABS: Prolactin 6.5 ng/mL (2.8-29.2)
== END | disposition home or self-care (01) ==
LOC: LABWHC1 07:26
PROVIDERS: ATTEND Internal Medicine Endocrinology, Diabetes & Metabolism
DX: E03.8 Other specified hypothyroidism (principal); R53.83 Other fatigue
CPT/HCPCS: 36415; 80053; 82024; 82533; 82607; 84146; 84443; 85027

== ENCOUNTER → 2020-11-27 | Outpatient (CLI) | payer BC | END | disposition home or self-care (01) | LOC: LABWHC1 10:50 | PROVIDERS: ATTEND Internal Medicine Endocrinology, Diabetes & Metabolism | DX: E03.8 Other specified hypothyroidism (principal) | CPT/HCPCS: 36415; 84443 ==

== ENCOUNTER → 2021-05-28 | Outpatient (CLI) | payer BC ==
[2021-05-28 22:09] LABS: T4, Free (Free Thyroxine) 1.23 ng/dL (0.800-1.800)
--- NOTE | 2021-05-31 10:59 | MM ---
Reason for exam: screening (asymptomatic). Last mammogram was performed 1 year and 3 months ago. History: Patient is postmenopausal. Family history of premenopausal breast cancer in sister at age 35 and breast cancer in maternal cousin at age 30. 2 benign excisional biopsies of the right breast, 1989. Took hormonal contraceptives for 5 years beginning at age 22. Took estrogen for 5 years. Took progesterone for 5 years. Physical Findings: A clinical breast exam by your physician is recommended on an annual basis and results should be correlated with mammographic findings. MG Screening Mammo w CAD Bilateral CC and MLO view(s) were taken. Prior study comparison: March 11, 2020, bilateral MG screening mammo w CAD. February 11, 2019, bilateral MG screening mammo w CAD. The breast tissue is heterogeneously dense. This may lower the sensitivity of mammography. There is chronic nodularity in the left breast. This finding is changed when compared with previous exams. ASSESSMENT: Incomplete: need additional imaging evaluation, BI-RAD 0 RECOMMENDATION: Special view mammogram of the right breast. If lesion persists on supplemental views, image directed ultrasound is recommended. [facility] will attempt to contact patient to return for supplemental views and ultrasound if indicated.
== END | disposition home or self-care (01) ==
LOC: RADMAMWWP 14:08
PROVIDERS: ATTEND Obstetrics & Gynecology
DX: Z12.31 Encounter for screening mammogram for malignant neoplasm of breast (principal); E03.8 Other specified hypothyroidism; Z78.0 Asymptomatic menopausal state; Z80.3 Family history of malignant neoplasm of breast
CPT/HCPCS: 77067; 84439; 84443

== ENCOUNTER → 2021-06-03 | Outpatient (CLI) | payer BC ==
--- NOTE | 2021-06-04 11:19 | MM ---
Reason for exam: additional evaluation requested from abnormal screening. Last mammogram was performed less than 1 month ago. History: Patient is postmenopausal. Family history of premenopausal breast cancer in sister at age 35 and breast cancer in maternal cousin at age 30. 2 benign excisional biopsies of the right breast, 1989. Took hormonal contraceptives for 5 years beginning at age 22. Took estrogen for 5 years. Took progesterone for 5 years. Physical Findings: A clinical breast exam by your physician is recommended on an annual basis and results should be correlated with mammographic findings. MG Work Up Mamm w CAD RT Spot compression CC and LM view(s) were taken of the right breast. Prior study comparison: May 28, 2021, bilateral MG screening mammo w CAD. March 11, 2020, bilateral MG screening mammo w CAD. The breast tissue is heterogeneously dense. This may lower the sensitivity of mammography. There is no discrete abnormality persists on additional views. Results were given to the patient verbally at the time of the exam. ASSESSMENT: Negative, BI-RAD 1 RECOMMENDATION: Return to routine screening mammogram schedule for both breasts.
== END | disposition home or self-care (01) ==
LOC: RADMAMWWP 14:45
PROVIDERS: ATTEND Obstetrics & Gynecology
DX: R92.8 Other abnormal and inconclusive findings on diagnostic imaging of breast (principal); Z78.0 Asymptomatic menopausal state; Z80.3 Family history of malignant neoplasm of breast
CPT/HCPCS: 77065

== ENCOUNTER → 2021-10-19 | Outpatient (CLI) | payer BC ==
[2021-10-19 18:44] LABS: T4, Free (Free Thyroxine) 1.22 ng/dL (0.800-1.800)
== END | disposition home or self-care (01) ==
LOC: LABWHC1 11:43
PROVIDERS: ATTEND Internal Medicine Endocrinology, Diabetes & Metabolism
DX: E03.8 Other specified hypothyroidism (principal)
CPT/HCPCS: 36415; 84439; 84443; 84480

== ENCOUNTER → 2024-01-24 | Outpatient (CLI) | payer MEDICARE ==
--- NOTE | 2024-01-25 08:06 | MM ---
Reason for Exam: Screening (asymptomatic). Last mammogram was performed 1 year(s) and 3 month(s) ago. Patient History: Menarche at age 15. First Full-Term at age 23. Hysterectomy at age 34. Postmenopausal. Patient used Estrogen for 5 years. Patient used Progesterone for 5 years. Hormonal Contraceptives for 5 years from age 22 until age 27. 1989, Benign Excisional Biopsy on the right side. 1989, Benign Excisional Biopsy on the right side. Maternal cousin had breast cancer, age 30. Sister had breast cancer, age 35. Risk Values: Cadence 5 year model risk: 4.8%. NCI Lifetime model risk: 16.4%. Prior Study Comparison: 05/28/2021 Bilateral Screening Mammogram, [facility]. 06/03/2021 Right Diagnostic Mammogram, [facility]. 10/19/2022 Bilateral MG 3D screening mammo w/cad, [facility]. Tissue Density: The breasts are heterogeneously dense, which may obscure small masses. Findings: Analyzed By CAD. There is no suspicious group of microcalcifications or new suspicious mass in either breast. Overall Assessment: Benign, BI-RAD 2 Management: Screening Mammogram of both breasts in 1 year. . Patient should continue monthly self-breast exams. A clinical breast exam by your physician is recommended on an annual basis. This exam should not preclude additional follow-up of suspicious palpable abnormalities. Note on Cadence scores and lifetime risk: 1. A Cadence score greater than 3% is considered moderate risk. If this is the case, consider specialist referral to assess eligibility for a risk reducing agent. 2. If overall lifetime risk for the development of breast cancer is 20% or higher, the patient may qualify for future screening with alternating mammogram and breast MRI. [facility], , 01/25/2024 8:02 AM. Electronically signed and approved by: Robby Fisher M.D. Radiologis
== END | disposition home or self-care (01) ==
LOC: RADMAMWWP 10:53
PROVIDERS: ATTEND Family Medicine
DX: Z12.31 Encounter for screening mammogram for malignant neoplasm of breast (principal); Z78.0 Asymptomatic menopausal state; Z80.3 Family history of malignant neoplasm of breast; R92.333 Mammographic heterogeneous density, bilateral breasts
CPT/HCPCS: 77063; 77067

== ENCOUNTER → 2024-05-23 | Outpatient (CLI) | payer MEDICARE ==
--- NOTE | 2024-05-23 11:06 | USB ---
Reason for Exam: Clinical finding. Patient History: Menarche at age 15. First Full-Term at age 23. Hysterectomy at age 34. Postmenopausal. Patient used Estrogen for 5 years. Patient used Progesterone for 5 years. Hormonal Contraceptives for 5 years from age 22 until age 27. 1989, Benign Excisional Biopsy on the right side. 1989, Benign Excisional Biopsy on the right side. Maternal cousin had breast cancer, age 30. Sister had breast cancer, age 35. Risk Values: Cadence 5 year model risk: 4.8%. NCI Lifetime model risk: 16.4%. Technique: Method: Targeted. Prior Study Comparison: 06/03/2021 Right Diagnostic Mammogram, [facility]. 10/19/2022 Bilateral MG 3D screening mammo w/cad, [facility]. 01/24/2024 Bilateral MG 3D screening mammo w/cad, [facility]. Findings: The area of palpable concern of the left breast, the axilla of the left breast and the retroareolar of the left breast were scanned. Ultrasound at the site of clinical concern left breast 11:00 position 14 cm from the nipple demonstrates a smoothly marginated mass measuring 3.5 x 7 cm. This likely reflects a lipoma. No suspicious masses are seen. Correlate clinically. Overall Assessment: Benign, BI-RAD 2 Management: Screening Mammogram of both breasts in 1 year. A clinical breast exam by your physician is recommended on an annual basis and results should be correlated with mammographic findings. This exam should not preclude additional follow-up of suspicious palpable abnormalities. Results were given to the patient verbally at the time of exam. [facility], , 05/23/2024 11:03 AM. Electronically signed and approved by: Robby Fisher M.D. Radiologis
== END | disposition home or self-care (01) ==
LOC: RADUSWWP 10:29
PROVIDERS: ATTEND Family Medicine
DX: N63.22 Unspecified lump in the left breast, upper inner quadrant (principal); R22.2 Localized swelling, mass and lump, trunk; Z78.0 Asymptomatic menopausal state; Z80.3 Family history of malignant neoplasm of breast; Z92.0 Personal history of contraception